=== PATIENT | male | born 1960 | race Caucasian/White ===

== ENCOUNTER 2017-06-05 07:45 | Observation (INO) | payer BC ==
[2017-06-05] MEDS ORDERED: Nitroglycerin 0.4 MG Tab.SL SL ONE (07:55)
[2017-06-05] MEDS ORDERED: Sodium Chloride 0.9% 2.5 ML Syringe FLUSH PRN (07:56)
[2017-06-05] MEDS ORDERED: Aspirin 81 MG Tab.Chew PO ONE (07:56)
[2017-06-05] MEDS ORDERED: Sodium Chloride 0.9% 10 ML Syringe FLUSH PRN (07:56)
[2017-06-05] MEDS ORDERED: Sodium Chloride 0.9% 1,000 ML IV ONE (07:56)
--- NOTE | 2017-06-05 08:01 | EDM.PDOC ---
ED HPI GENERAL MEDICAL PROBLEM - General Chief Complaint: Upper Extremity Injury/Pain Stated Complaint: LEFT SHOULDER PAIN Time Seen by Provider: 06/05/17 07:46 - History of Present Illness INITIAL COMMENTS - FREE TEXT/NARRATIVE: HISTORY AND PHYSICAL: History of present illness: The patient is a 57-year-old male with a history of hypertension hypercholesterolemia and several kidney stones in the fast was also had an ablation for atrial fibrillation in the and presents with left posterior chest/back pain that started 3 days ago it has been constant. He described initially to triage as shoulder pain but really he is pointing to his left back underneath the scapula and says it radiates to his anterior chest and it Does not involve the left arm. There is no associated symptoms of shortness of breath diaphoresis nausea vomiting or abdominal pain. He says he does not have discrete flank pain and this does not feel like a kidney stone and he has had at least 3 of those in the past. He's had no recent trauma and no excessive activity and no neurosensory changes or weakness in his left arm. He has no upper respiratory symptoms such as cough fever chills or runny nose and has not taken anything for the pain. He says it keeps him up at night and it is been constant. The patient says it did start suddenly and has been continuous. He has no leg pain or swelling. The patient does have a significant family history in that his brother had a heart attack at a similar age him, low 50s. Review of systems: As per history of present illness and below otherwise all systems reviewed and negative. Past medical history: As per history of present illness and as reviewed below otherwise noncontributory. Surgical history: As per history of present illness and as reviewed below otherwise noncontributory. Social history: No reported history of drug or alcohol abuse. Family history: As per history of present illness and as reviewed below otherwise noncontributory. Physical exam: Gen.: Well-developed well-nourished man who is nontoxic and vital signs of been noted by me. He moves easily in the ED without distress. HEENT: Atraumatic, normocephalic, negative for conjunctival pallor or scleral icterus, mucous membranes moist, throat clear, neck supple, nontender, trachea midline. Lungs: Clear to auscultation, breath sounds equal bilaterally, chest nontender. There is no evidence of any defects crepitus or deformities of the chest wall anteriorly or posteriorly Heart: S1S2, regular, negative for clicks, rubs, or JVD. Abdomen: Soft, nondistended, nontender. Negative for masses or hepatosplenomegaly. Negative for costovertebral tenderness. Pelvis: Stable nontender. Genitourinary: Deferred. Rectal: Deferred. Extremities: Atraumatic, negative for cords or calf pain. Neurovascular unremarkable. No pedal edema or leg asymmetry Neuro: Awake, alert, oriented. Cranial nerves II through XII unremarkable. Cerebellum unremarkable. Motor and sensory unremarkable throughout. Exam nonfocal. Skin: No diaphoresis normal turgor no evidence of any rashes or lesions Back: There are no midline step-offs tenderness events of the thoracic or lumbar spine and there is no specific musculoskeletal discomfort with palpation of the shoulder girdle but there is some mild discomfort underneath the left scapula with the patient indicates the pain is. There is no discrete CVA tenderness and I cannot reproduce the pain with palpation completely. Diagnostics: EKG CBC CMP troponin d-dimer UA chest x-ray Therapeutics: IV O2 monitor aspirin nitroglycerin sublingual 1 Toradol nitro paste His note the patient did not have any significant change in his back pain with the nitroglycerin sublingual so we will place a small dose of Nitropaste as the sublingual helped his blood pressure. Patient does not want any narcotics or muscle relaxers well give him some Toradol and continue to monitor his workup. 1000: The patient is resting comfortably on my reevaluation and his blood pressure is now 130s over 80s. He has the half an inch of nitro paste in place and I discussed with him all testing results which include a negative troponin, negative labs negative CAT scan for kidney stones negative CAT scan for PE or lung pathology and I discussed with him my concerns about his history and presentation. As he has had the pain continuously for 3 days and has negative EKG and troponin it is unlikely this is a cardiac source but at this point I will recommend observation admission and will discuss the case with our hospitalist due to his significant medical history and his family history. This seems very musculoskeletal but he is comfortable with being observed and doing some serial EKGs and enzymes confirm that. I will give him Norflex and morphine for pain and reevaluate. 1010: Case was discussed with Dr. Parra who is agreeable for admission Impression: Atypical back/chest pain stable with poorly controlled hypertension Definitive disposition and diagnosis as appropriate pending reevaluation and review of above. left shoulder Pain Score (Numeric/FACES): 5 - Related Data Allergies Allergy/AdvReac Type Severity Reaction Status Date / Time No Known Allergies Allergy Verified 06/05/17 07:51 Home Meds: Home Meds Lisinopril/Hydrochlorothiazide [Lisinopril-Hctz 20-12.5 mg Tab] 1 each PO DAILY 06/05/17 [History] Verapamil [Verapamil SR (24 Hr)] 180 mg PO DAILY 06/05/17 [History] Review of Systems - Review of Systems Review Of Systems: ROS reveals no pertinent complaints other than HPI. ED EXAM, GENERAL - Physical Exam Exam: See Below (see dictation) Course - Vital Signs Last Recorded V/S: Last Vital Signs Temp 36.2 C 06/05/17 07:45 Pulse 72 06/05/17 07:45 Resp 18 06/05/17 07:45 BP 160/90 H 06/05/17 08:12 Pulse Ox 96 06/05/17 07:55 - Orders/Labs/Meds Orders: Active Orders 24 hr Category Date Time Status Cardiac Monitoring [RC] . DIRECTED Care 06/05/17 07:55 Active EKG Documentation Completion [RC] STAT Care 06/05/17 07:55 Active Oxygen Therapy, ED [RC] ASDIRECTED Care 06/05/17 07:55 Active Pulse Oximetry [RC] ASDIRECTED Care 06/05/17 07:55 Active CULTURE URINE [RM] Stat Lab 06/05/17 07:56 Uncollected UA W/MICROSCOPIC [URIN] Stat Lab 06/05/17 07:56 Uncollected Orphenadrine [Norflex] Med 06/05/17 10:15 Ordered 60 mg IM Q12H Sodium Chloride 0.9% [Saline Flush] Med 06/05/17 07:56 Active 10 ml FLUSH ASDIRECTED PRN Sodium Chloride 0.9% [Saline Flush] Med 06/05/17 07:56 Active 2.5 ml FLUSH ASDIRECTED PRN Saline Lock Insert [OM.PC] Stat Oth 06/05/17 07:55 Ordered Medication Orders Orphenadrine Citrate (Norflex) 60 mg IM Q12H ANGIE Sodium Chloride (Saline Flush) 10 ml FLUSH ASDIRECTED PRN PRN Reason: Keep Vein Open Sodium Chloride (Saline Flush) 2.5 ml FLUSH ASDIRECTED PRN PRN Reason: Keep Vein Open Labs: Laboratory Tests 06/05/17 06/05/17 06/05/17 Range/Units 08:06 08:06 08:06 WBC 5.62 (4.0-11.0) K/uL RBC 4.68 (4.50-5.90) M/uL Hgb 14.1 (13.0-17.0) g/dL Hct 41.6 (38.0-50.0) % MCV 88.9 (80.0-98.0) fL MCH 30.1 (27.0-32.0) pg MCHC 33.9 (31.0-37.0) g/dL RDW Std Deviation 43.2 (28.0-62.0) fl RDW Coeff of [place]iel[place] 13 (11.0-15.0) % Plt Count 207 (150-400) K/uL MPV 10.30 (7.40-12.00) fL Neut % (Auto) 44.8 L (48.0-80.0) % Lymph % (Auto) 37.9 (16.0-40.0) % Wayne % (Auto) 9.8 (0.0-15.0) % Eos % (Auto) 6.6 (0.0-7.0) % Baso % (Auto) 0.9 (0.0-1.5) % Neut # (Auto) 2.5 (1.4-5.7) K/uL Lymph # (Auto) 2.1 (0.6-2.4) K/uL Wayne # (Auto) 0.6 (0.0-0.8) K/uL Eos # (Auto) 0.4 (0.0-0.7) K/uL Baso # (Auto) 0.1 (0.0-0.1) K/uL Nucleated RBC % 0.0 /100WBC Nucleated RBCs # 0 K/uL D-Dimer, Quantitative 0.38 (0.0-0.52) mg/LFEU Sodium 141 (136-146) mmol/L Potassium 3.6 (3.5-5.1) mmol/L Chloride 108 (98-110) mmol/L Carbon Dioxide 24 (21-31) mmol/L BUN 21 (6.0-23.0) mg/dL Creatinine 0.9 (0.6-1.5) mg/dL Est Cr Clr Drug Dosing 92.74 mL/min Estimated GFR (MDRD) > 60.0 ml/min Glucose 86 (60-110) mg/dL Calcium 8.8 (8.8-10.8) mg/dL Total Bilirubin 0.5 (0.1-1.5) mg/dL AST 16 (5-40) IU/L ALT 14 (8-54) IU/L Alkaline Phosphatase 81 (40-150) Troponin I < 0.10 (0.0-0.29) NG/ML Total Protein 7.2 (6.0-8.0) g/dL Albumin 3.9 (3.5-5.0) g/dL Globulin 3.3 (2.0-3.5) g/dL Albumin/Globulin Ratio 1.2 L (1.3-2.8) Meds: Medications Generic Name Dose Route Start Last Admin Trade Name Freq PRN Reason Stop Dose Admin Orphenadrine Citrate 60 mg 06/05/17 10:15 Norflex IM Q12H ANGIE Sodium Chloride 10 ml 06/05/17 07:56 Saline Flush FLUSH ASDIRECTED PRN Keep Vein Open Sodium Chloride 2.5 ml 06/05/17 07:56 Saline Flush FLUSH ASDIRECTED PRN Keep Vein Open Discontinued Medications Generic Name Dose Route Start Last Admin Trade Name Freq PRN Reason Stop Dose Admin Aspirin 324 mg 06/05/17 07:56 06/05/17 08:12 Aspirin PO 06/05/17 07:57 324 mg ONETIME ONE Administration Sodium Chloride 1,000 mls @ 999 mls/hr 06/05/17 07:56 06/05/17 08:12 Normal Saline IV 06/05/17 08:56 999 mls/hr STAT ONE Administration Iopamidol 50 ml 06/05/17 09:47 06/05/17 09:47 Isovue Multipack-370 (76%) IVPUSH 06/05/17 09:48 50 ml ONETIME ONE Administration Ketorolac Tromethamine 30 mg 06/05/17 08:27 06/05/17 08:45 Toradol IVPUSH 06/05/17 08:28 30 mg ONETIME ONE Administration Morphine Sulfate 2 mg 06/05/17 10:05 Morphine IVPUSH 06/05/17 10:06 ONETIME ONE Nitroglycerin 0.4 mg 06/05/17 07:55 06/05/17 08:12 Nitrostat SL 06/05/17 07:56 0.4 mg ONETIME ONE Administration Nitroglycerin 0.5 gm 06/05/17 08:27 06/05/17 08:46 Nitro-Bid 2% TOP 06/05/17 08:28 0.5 gm ONETIME ONE Administration Departure - Departure Time of Disposition: 10:12 Disposition: Refer to Observation Condition: Good Clinical Impression: Atypical chest pain - Discharge Information Referrals: PCP,None [Primary Care Provider] - Forms: ED Department Discharge - My Orders Last 24 Hours: My Active Orders 06/05/17 07:55 Cardiac Monitoring [RC] . DIRECTED EKG Documentation Completion [RC] STAT Oxygen Therapy, ED [RC] ASDIRECTED Pulse Oximetry [RC] ASDIRECTED Saline Lock Insert [OM.PC] Stat 06/05/17 07:56 CULTURE URINE [RM] Stat UA W/MICROSCOPIC [URIN] Stat Sodium Chloride 0.9% [Saline Flush] 10 ml FLUSH ASDIRECTED PRN Sodium Chloride 0.9% [Saline Flush] 2.5 ml FLUSH ASDIRECTED PRN 06/05/17 10:15 Orphenadrine [Norflex] 60 mg IM Q12H - Assessment/Plan Last 24 Hours: My Active Orders 06/05/17 07:55 Cardiac Monitoring [RC] . DIRECTED EKG Documentation Completion [RC] STAT Oxygen Therapy, ED [RC] ASDIRECTED Pulse Oximetry [RC] ASDIRECTED Saline Lock Insert [OM.PC] Stat 06/05/17 07:56 CULTURE URINE [RM] Stat UA W/MICROSCOPIC [URIN] Stat Sodium Chloride 0.9% [Saline Flush] 10 ml FLUSH ASDIRECTED PRN Sodium Chloride 0.9% [Saline Flush] 2.5 ml FLUSH ASDIRECTED PRN 06/05/17 10:15 Orphenadrine [Norflex] 60 mg IM Q12H
[2017-06-05] MEDS ORDERED: Ketorolac 30 MG/ML SDV IVPUSH ONE (08:27)
[2017-06-05] MEDS ORDERED: Nitroglycerin 2% Oint 1 GM UD Packet TOP ONE (08:27)
--- NOTE | 2017-06-05 08:52 | CR ---
EXAMINATION: Portable chest radiograph. HISTORY: Shortness of breath. FINDINGS: The trachea is midline. The cardiomediastinal silhouette is within normal limits. No pulmonary infilt rates, effusions or pneumothorax. Probable calcified granuloma within the right mid chest. Osseous structures appear unremarkable. IMPRESSION: No acute cardiopulmonary process.
[2017-06-05 08:59] LABS: CHLORIDE,CL 108 mmol/L (98-110); SODIUM,NA 141 mmol/L (136-146)
[2017-06-05] MEDS ORDERED: Iopamidol 755 MG/ML 200 ML Multipack Bottle IVPUSH ONE (09:47)
--- NOTE | 2017-06-05 09:52 | CT ---
CT of the abdomen and pelvis without contrast. HISTORY: Pain TECHNIQUE: Axial CT images were obtained of the abdomen and pelvis without contrast. Coronal and sagi ttal reconstructions obtained. FINDINGS: The lung bases are clear, no pleural effusion. The liver, spleen, adrenal glands, and pancreas appear unremarkable for noncontrast examination. The gallbladder appears normal. There is no bulky retroperitoneal lymphadenopathy. No abdominal ascites. There are no calcifications noted within the kidneys or along the courses of the ureters bilaterally. The large and small bowel are normal in caliber without evidence of obstruction. The appendix appears normal. Moderate diverticulosis without evidence of diverticulitis. There is no bulky pelvic lymphad enopathy. No free fluid. No free air. The urinary bladder appears normal. The visualized osseous structures appear normal. IMPRESSION: 1. No acute findings within the abdomen or pelvis. 2. Diverticulosis without evidence of diverticulitis.
--- NOTE | 2017-06-05 09:57 | CT ---
EXAMINATION: CTA chest HISTORY: Back pain COMPARISON: None TECHNIQUE: Axial CT images obtained through the chest following the administration of 50 mL of Isovue -370 right antecubital fossa. Coronal and sagittal reconstructions obtained. FINDINGS: The lungs are clear without focal consolidation. No pleural effusion or pneumothorax. Calci fied granuloma noted in the right middle lobe. Mild dependent atelectasis. The heart is normal in siz e without a pericardial effusion. Mild coronary artery calcifications. The thoracic aorta is normal i n caliber. No bulky mediastinal, hilar, or axillary lymphadenopathy. The main pulmonary arteries are patent, no pulmonary embolism identified. Central airways are clear. Visualized images of the upper abdomen appear unremarkable. No suspicious osseous abnormalities. IMPRESSION: 1. No acute cardiopulmonary findings. 2. No pulmonary embolism identified.
[2017-06-05] MEDS ORDERED: Morphine 2 MG/ML Syringe IVPUSH ONE (10:05)
--- NOTE | 2017-06-05 11:29 | PCM.HP ---
H&P History of Present Illness - General Date of Service: 06/05/17 Admit Problem/Dx: Chest pain Source of Information: Patient History Limitations: Reports: No Limitations - History of Present Illness Initial Comments - Free Text/Narative: This 57 year old male with pmh of afib with ablation in the early , HTN, dyslipidemia and obesity presented to the ED today with concerns of L scapular/ shoulder pain, which radiates to upper L anterior chest. He reports 3 days ago this pain started, which is sharp shooting in nature and constant. The pain increases with movement of L arm and shoulder and improves some with rest. he denies SOB, diaphoresis or palpitations with this pain. It doesn't necessarily worsen with activity, except with moving L arm and shoulder. The pain is located to upper mid back, not over spine, just beneath the scapula. he denies recent trauma or injury that he can recall. He does work in the [employer] and performs labor intensive work at times. He reports 2 or so years ago he was exposed to H2S gas and flown to [place] and woke up intubated. No complications since. He does have family history of CAD, brother had MN near ago 50. In the ED labowrk WNL. Troponin negative. EKG SR with slight LA prolongation, no acute signs of ischemia. CXR negative along with Abdominal/Pelvis CT and CT angio chest. he was treated with ASA, SL nitro and nitro paste. BP elevated 160 /90s on ED arrival. Patient reports he has not taken any home medications for BP this morning, he was just getting off work and felt the pain was severe and needed follow up. He was given Toradol, Morphine and Orophenadrine for musculoskeletal pain of shoulder/upper back. He will be admitted with atypical chest pain R/O ACS. left shoulder Pain Score (Numeric/FACES): 5 - Related Data Allergies/Adverse Reactions: Allergies Allergy/AdvReac Type Severity Reaction Status Date / Time No Known Allergies Allergy Verified 06/05/17 07:51 Home Medications: Home Meds Lisinopril/Hydrochlorothiazide [Lisinopril-Hctz 20-12.5 mg Tab] 1 each PO DAILY 06/05/17 [History] Verapamil [Verapamil SR (24 Hr)] 180 mg PO DAILY 06/05/17 [History] Past Medical History Cardiovascular History: Reports: Afib (ablation in 1990s.), High Cholesterol, Hypertension Respiratory History: Reports: None. Denies: Asthma, COPD Gastrointestinal History: Reports: None. Denies: GERD, GI Bleed Genitourinary History: Reports: Renal Calculus Musculoskeletal History: Reports: None. Denies: Arthritis Neurological History: Denies: CVA, TIA Psychiatric History: Denies: Anxiety, Depression Oncologic (Cancer) History: Reports: Lymphoma (treated with chemotherapy, 12 years ago), Malignant Melanoma - Infectious Disease History Infectious Disease History: Reports: Mumps - Past Surgical History HEENT Surgical History: Reports: Other (See Below) Other HEENT Surgeries/Procedures: tumor removed from back of neck. Cardiovascular Surgical History: Reports: Cardiac Ablation Male Surgical History: Reports: Renal Calculus Musculoskeletal Surgical History: Reports: Carpal Tunnel Social & Family History - Family History Cardiac: Reports: CAD, [place] - Tobacco Use Smoking Status *Q: Never Smoker - Alcohol Use Alcohol Use History: No - Recreational Drug Use Recreational Drug Use: No - Living Situation & Occupation Living situation: Reports: Occupation: Employed H&P Review of Systems - Review of Systems: Review Of Systems: See Below General: Reports: No Symptoms. Denies: Fever, Chills, Malaise, Weakness HEENT: Reports: No Symptoms. Denies: Headaches, Sinus Congestion, Sore Throat Pulmonary: Reports: No Symptoms. Denies: Shortness of Breath, Cough, Sputum Cardiovascular: Reports: No Symptoms. Denies: Chest Pain, Dyspnea on Exertion, Edema, Lightheadedness Gastrointestinal: Reports: No Symptoms, Flatus. Denies: Abdominal Pain, Black Stool, Bloody Stool Genitourinary: Reports: No Symptoms. Denies: Frequency, Burning, Flank Pain Musculoskeletal: Reports: Back Pain (upper back, L side just below scapula.) Skin: Reports: No Symptoms Psychiatric: Reports: No Symptoms Neurological: Reports: No Symptoms Exam - Exam Exam: See Below - Vital Signs Vital Signs: Last Vital Signs Temp 97.2 F 06/05/17 07:45 Pulse 59 L 06/05/17 11:00 Resp 16 06/05/17 11:00 BP 135/80 06/05/17 11:00 Pulse Ox 93 L 06/05/17 11:00 Weight: 104.326 kg - Exam General: Alert, Oriented, Cooperative HEENT: Conjunctiva Clear, Mucosa Moist & Bergman, Posterior Pharynx Clear, Pupils Equal Neck: Supple, Trachea Midline, 2 Lungs: Clear to Auscultation, Normal Respiratory Effort Cardiovascular: Regular Rate, Regular Rhythm GI/Abdominal Exam: Normal Bowel Sounds, Soft, Non-Tender, No Organomegaly, No Distention, No Abnormal Bruit, No Mass, Pelvis Stable Back Exam: Normal Inspection, Full Range of Motion, Other (notable tenderness to lower trapezius, just below L scapula, with palpation of this if ellicits pain he is feeling, this also radiates to upper neck and L upper chest, which is tender to palpation as well. No bruising or ecchymosis noted to back and no palpation mass. Shoulder is free and moveable, but with movement it also ellicits same pain to scapular region.) Neuro Extensive - Mental Status: Alert, Oriented x3, Normal Mood/Affect, Normal Cognition Psychiatric: Alert, Normal Affect, Normal Mood - Patient Data Result Diagrams: 06/05/17 08:06 06/05/17 08:06 *Q Meaningful Use (ADM) - VTE *Q VTE Criteria *Q: - Stroke *Q Stroke Criteria *Q: - AMI *Q AMI Criteria *Q: - Problem List (1) Back pain SNOMED Code(s): 414824127 ICD Code: M54.9 - DORSALGIA, UNSPECIFIED Status: Acute Current Visit: Yes Qualifiers: Back pain location: back pain in other location Chronicity: acute Qualified Code(s): M54.9 - Dorsalgia, unspecified (2) Atypical chest pain SNOMED Code(s): 781023417 ICD Code: R07.89 - OTHER CHEST PAIN Status: Acute Current Visit: Yes (3) HTN (hypertension) SNOMED Code(s): 53304248 ICD Code: I10 - ESSENTIAL (PRIMARY) HYPERTENSION Status: Chronic Current Visit: Yes Qualifiers: Hypertension type: essential hypertension Qualified Code(s): I10 - Essential (primary) hypertension (4) Dyslipidemia SNOMED Code(s): 973525365 ICD Code: E78.5 - HYPERLIPIDEMIA, UNSPECIFIED Status: Chronic Current Visit: Yes (5) History of atrial fibrillation SNOMED Code(s): 585411686 ICD Code: Z86.79 - PERSONAL HISTORY OF OTHER DISEASES OF THE CIRCULATORY SYSTEM Status: Chronic Current Visit: Yes Problem List Initiated/Reviewed/Updated: Yes Orders Last 24hrs: Medication Orders Orphenadrine Citrate (Norflex) 60 mg IM Q12H ANGIE Last Admin: 06/05/17 10:29 Dose: 60 mg Sodium Chloride (Saline Flush) 10 ml FLUSH ASDIRECTED PRN PRN Reason: Keep Vein Open Sodium Chloride (Saline Flush) 2.5 ml FLUSH ASDIRECTED PRN PRN Reason: Keep Vein Open Assessment/Plan Comment:: This 57 year old male admitted with atypical chest pain and upper L back pain 1. Atypical chest pain: With personal and family history will rule out ACS. Trend troponins and monitor on telemetry. A1c 5.2 and Cholesterol well controlled on statin. 2. Upper L back pain: Which is likely causing radating L upper chest pain. Ice/ heat therapy. Tylenol and Norflex PRN. No NSAIDs now due to ACS rule out and cardiac disease. 3. HTN: Kiko remove Nitro paste and give am medications. BP elevated on arrival, but patient had not taken morning medications. WIll monitor. 4. Dyslipidemia: controlled. Continue Crestor VTE prophylaxis: SCDs Dispo; Possible DC in am.
[2017-06-05] MEDS ORDERED: Acetaminophen 325 MG Tab PO PRN (11:52)
[2017-06-05] MEDS ORDERED: Ondansetron 4 MG/2 ML SDV IVPUSH PRN (11:52)
[2017-06-05] MEDS ORDERED: Non-Formulary Medication 1 Each (Lisinopril/Hydrochlorothiazide [Lisinopril-Hctz 20-12.5 M PO SCH (12:00)
[2017-06-05] MEDS: Lisinopril 10 MG Tab PO SCH (13:32)
[2017-06-05] MEDS: Hydrochlorothiazide 12.5 MG Cap PO SCH (13:32)
[2017-06-05] MEDS: Verapamil 180 MG Tab.ER PO SCH (13:32)
[2017-06-05] MEDS ORDERED: traMADol 50 MG Tab PO PRN (16:31)
[2017-06-05] MEDS ORDERED: Morphine 2 MG/ML Syringe IVPUSH PRN (16:32)
[2017-06-05] MEDS ORDERED: Rosuvastatin 10 MG Tab PO SCH (21:00)
--- NOTE | 2017-06-06 08:33 | PCM.DCSUM1 ---
Discharge Summary - Hospital Course Brief History: This 57 year old male with pmh of afib with ablation in the early , HTN, dyslipidemia and obesity presented to the ED today with concerns of L scapular/shoulder pain, which radiates to upper L anterior chest. He reports 3 days ago this pain started, which is sharp shooting in nature and constant. The pain increases with movement of L arm and shoulder and improves some with rest. he denies SOB, diaphoresis or palpitations with this pain. It doesn't necessarily worsen with activity, except with moving L arm and shoulder. The pain is located to upper mid back, not over spine, just beneath the scapula. he denies recent trauma or injury that he can recall. 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 He reports 2 or so years ago he was exposed to H2S gas and flown to [place] and woke up intubated. No complications since. He does have family history of CAD, brother had AK near ago 50. In the ED labowrk WNL. Troponin negative. EKG SR with slight NE prolongation, no acute signs of ischemia. CXR negative along with Abdominal/ Pelvis CT and CT angio chest. he was treated with ASA, SL nitro and nitro paste. BP elevated 160/90s on ED arrival. Patient reports he has not taken any home medications for BP this morning, he was just getting off work and felt the pain was severe and needed follow up. He was given Toradol, Morphine and Orophenadrine for musculoskeletal pain of shoulder/upper back. He will be admitted with atypical chest pain R/O ACS. - Discharge Data Discharge Date: 06/06/17 Discharge Disposition: Home, Self-Care 01 Condition: Good - Discharge Diagnosis/Problem(s) (1) Back pain SNOMED Code(s): 226911994 ICD Code: M54.9 - DORSALGIA, UNSPECIFIED Status: Acute Current Visit: Yes Qualifiers: Back pain location: back pain in other location Chronicity: acute Qualified Code(s): M54.9 - Dorsalgia, unspecified (2) Atypical chest pain SNOMED Code(s): 137771356 ICD Code: R07.89 - OTHER CHEST PAIN Status: Acute Current Visit: Yes (3) HTN (hypertension) SNOMED Code(s): 87987326 ICD Code: I10 - ESSENTIAL (PRIMARY) HYPERTENSION Status: Chronic Current Visit: Yes Qualifiers: Hypertension type: essential hypertension Qualified Code(s): I10 - Essential (primary) hypertension (4) Dyslipidemia SNOMED Code(s): 839025274 ICD Code: E78.5 - HYPERLIPIDEMIA, UNSPECIFIED Status: Chronic Current Visit: Yes (5) History of atrial fibrillation SNOMED Code(s): 042519195 ICD Code: Z86.79 - PERSONAL HISTORY OF OTHER DISEASES OF THE CIRCULATORY SYSTEM Status: Chronic Current Visit: Yes - Patient Instructions Diet: Heart Healthy Diet Activity: No Strenuous Activities, Rest and Relax Today Driving: Do Not Drive Showering/Bathing: August Shower Notify Provider of: Fever, Increased Pain, Swelling and Redness, Drainage, Nausea and/or Vomiting - Discharge Plan Home Medications: Home Meds Lisinopril/Hydrochlorothiazide [Lisinopril-Hctz 20-12.5 mg Tab] 1 each PO DAILY 06/05/17 [History] Rosuvastatin Calcium 20 mg PO BEDTIME 06/05/17 [History] Verapamil [Verelan] 180 mg PO DAILY 06/05/17 [History] Acetaminophen [Tylenol] 650 mg PO Q4H PRN tablet 06/06/17 [Rx] Referrals: PCP,None [Primary Care Provider] - (follow up with PCP in 1 week) - Discharge Summary/Plan Comment DC Time >30 min.: No Discharge Summary/Plan Comment: Discharge Diagnoses: L upper back, trapezius muscle strain HTN Dyslipidemia Hx afib, s/p ablation in . [place] was admitted due to L upper back, scapular pain, which radiated to L upper chest and neck. He had exquisite tenderness right below scapula on the lower trapezius muscle. He was treated with Orphenidrine, Toradol and Morphine in the ED. He was given Nitro SL and nitro paste in ED, which did not help pain at all. Once arriving to floor the pain had improved but received Tramadol x1 and slept the night without any concerns. Due to cardiac history ED recommended admission for atypical chest pain. Troponins were all negative and telemetry showed no signs of acute ischemia. He had no associated symptoms such as dyspnea or diaphoresis. This morning he is feeling much better, the tenderness to upper back is nearly gone and he is eager to be discharged home. He will be sent home with encouragement to rest today, no work until tomorrow night. He was encouraged to use heat or ice as needed for pain and Tylenol 650 q4hr prn pain. He is to return to PCP in 1 week for follow up, we will fax information. I do not feel urgent stress test is needed due to nature and reproducible pain from palpation of trapezius. ACS ruled out, but pain secondary to trapezius muscle strain. He is to return to ED or clinic if concerns should arise. Continue all home medications as previously prescribed. - General Info Date of Service: 06/06/17 Admission Dx/Problem (Free Text: L upper back pain, Atypical Chest pain Subjective Update: Doing well this morning, slept really well. Pain to L shoulder upper back is much better. He is able to move shoulder easily without causing pain to lower trapezius muscle. No chest pain, SOB or palpitations. No neck pain. Ready to be discharged home this morning. Functional Status: Reports: Pain Controlled, Tolerating Diet, Ambulating, Urinating - Review of Systems General: Reports: No Symptoms. Denies: Fever HEENT: Reports: No Symptoms. Denies: Headaches, Sore Throat, Rhinitis Pulmonary: Reports: No Symptoms. Denies: Shortness of Breath Cardiovascular: Reports: No Symptoms. Denies: Chest Pain, Palpitations, Edema, Lightheadedness Gastrointestinal: Reports: No Symptoms. Denies: Abdominal Pain, Nausea, Vomiting Genitourinary: Reports: No Symptoms. Denies: Dysuria, Frequency, Burning Musculoskeletal: Reports: Back Pain (upper back, patient explains as shoulder, but actual shoulder joint does not have pain, more more blade. Pain is nearly gone today.) Neurological: Reports: No Symptoms Psychiatric: Reports: No Symptoms - Patient Data Vitals - Most Recent: Last Vital Signs Temp 96.7 F 06/06/17 07:42 Pulse 55 L 06/06/17 07:42 Resp 18 06/06/17 07:42 BP 132/81 06/06/17 07:42 Pulse Ox 96 06/06/17 07:42 Weight - Most Recent: 104.326 kg I&O - Last 24 hours: Intake & Output 06/05/17 06/06/17 06/06/17 22:59 06:59 14:59 Intake Total 200 300 Output Total 250 675 Balance -50 -375 Lab Results - Last 24 hrs: Laboratory Results - last 24 hr 06/05/17 06/05/17 06/05/17 Range/Units 12:15 14:17 19:58 Troponin I < 0.10 < 0.10 (0.0-0.29) NG/ML Urine Color YELLOW Urine Appearance CLEAR Urine pH 6.0 (5.0-8.0) Ur Specific [place] 1.020 (1.001-1.035) Urine Protein NEGATIVE (NEGATIVE) mg/dL Urine Glucose (UA) NEGATIVE (NEGATIVE) mg/dL Urine Ketones NEGATIVE (NEGATIVE) mg/dL Urine Occult Blood NEGATIVE (NEGATIVE) Urine Nitrite NEGATIVE (NEGATIVE) Urine Bilirubin NEGATIVE (NEGATIVE) Urine Urobilinogen 0.2 (<2.0) EU/dL Ur Leukocyte Esterase NEGATIVE (NEGATIVE) Urine RBC 0-1 (0-2/HPF) Urine WBC 0-1 (0-5/HPF) Ur Epithelial Cells RARE (NONE-FEW) Urine Bacteria RARE (NEGATIVE) Med Orders - Current: Current Medications Acetaminophen (Tylenol) 650 mg PO Q4H PRN PRN Reason: Pain (mild 1-3) Last Admin: 06/05/17 16:06 Dose: 650 mg Hydrochlorothiazide (Hydrochlorothiazide) 12.5 mg PO DAILY [facility] Last Admin: 06/05/17 13:32 Dose: 12.5 mg Lisinopril (Prinivil) 20 mg PO DAILY [facility] Last Admin: 06/05/17 13:32 Dose: 20 mg Morphine Sulfate (Morphine) 2 mg IVPUSH Q4H PRN PRN Reason: Pain Ondansetron HCl (Zofran) 4 mg IVPUSH Q4H PRN PRN Reason: Nausea Orphenadrine Citrate (Norflex) 60 mg IM Q12H PRN PRN Reason: Pain Rosuvastatin Calcium (Crestor) 20 mg PO BEDTIME [facility] Last Admin: 06/05/17 20:10 Dose: 20 mg Sodium Chloride (Saline Flush) 10 ml FLUSH ASDIRECTED PRN PRN Reason: Keep Vein Open Sodium Chloride (Saline Flush) 2.5 ml FLUSH ASDIRECTED PRN PRN Reason: Keep Vein Open Tramadol HCl (Ultram) 50 mg PO Q4H PRN PRN Reason: Pain Last Admin: 06/05/17 20:10 Dose: 50 mg Verapamil HCl (Calan Sr) 180 mg PO DAILY [facility] Last Admin: 06/05/17 13:32 Dose: 180 mg Discontinued Medications Aspirin (Aspirin) 324 mg PO ONETIME ONE Stop: 06/05/17 07:57 Last Admin: 06/05/17 08:12 Dose: 324 mg Sodium Chloride (Normal Saline) 1,000 mls @ 999 mls/hr IV STAT ONE Stop: 06/05/17 08:56 Last Admin: 06/05/17 08:12 Dose: 999 mls/hr Iopamidol (Isovue Multipack-370 (76%)) 50 ml IVPUSH ONETIME ONE Stop: 06/05/17 09:48 Last Admin: 06/05/17 09:47 Dose: 50 ml Ketorolac Tromethamine (Toradol) 30 mg IVPUSH ONETIME ONE Stop: 06/05/17 08:28 Last Admin: 06/05/17 08:45 Dose: 30 mg Morphine Sulfate (Morphine) 2 mg IVPUSH ONETIME ONE Stop: 06/05/17 10:06 Last Admin: 06/05/17 10:29 Dose: 2 mg Nitroglycerin (Nitrostat) 0.4 mg SL ONETIME ONE Stop: 06/05/17 07:56 Last Admin: 06/05/17 08:12 Dose: 0.4 mg Nitroglycerin (Nitro-Bid 2%) 0.5 gm TOP ONETIME ONE Stop: 06/05/17 08:28 Last Admin: 06/05/17 08:46 Dose: 0.5 gm Orphenadrine Citrate (Norflex) 60 mg IM Q12H [facility] Last Admin: 06/05/17 10:29 Dose: 60 mg - Exam Quality Assessment: Reports: DVT Prophylaxis. Denies: Supplemental Oxygen General: Reports: Alert, Oriented, Cooperative, No Acute Distress HEENT: Reports: Pupils Equal, Pupils Reactive, EOMI, Mucous Membr. Moist/[place] Neck: Reports: Supple Lungs: Reports: Clear to Auscultation, Normal Respiratory Effort Cardiovascular: Reports: Regular Rate, Regular Rhythm GI/Abdominal Exam: Normal Bowel Sounds, Soft, Non-Tender, No Organomegaly, No Distention, No Abnormal Bruit, No Mass, Pelvis Stable Back Exam: Reports: Normal Inspection, Full Range of Motion, Other (no futher tenderness noted to lower trapezius muscle just below L scapula. ) Neurological: Reports: No New Focal Deficit Psy/Mental Status: Reports: Alert, Normal Affect, Normal Mood *Q Meaningful Use (DIS) - VTE *Q VTE Criteria *Q: - Stroke *Q Stroke Criteria *Q: - AMI *Q AMI Criteria *Q:
[2017-06-06] MEDS: Verapamil 180 MG Tab.ER PO SCH (08:54)
[2017-06-06] MEDS: Lisinopril 10 MG Tab PO SCH (08:54)
[2017-06-06] MEDS: Hydrochlorothiazide 12.5 MG Cap PO SCH (08:55)
== END 2017-06-06 10:30 | disposition home or self-care (01) ==
LOC: MW.ED 07:45 → MW.MS 10:13
PROVIDERS: ADMIT Internal Medicine; ATTEND Internal Medicine
DX: M54.9 Dorsalgia, unspecified (principal); R07.89 Other chest pain; I10 Essential (primary) hypertension; E78.5 Hyperlipidemia, unspecified; I48.2 Chronic atrial fibrillation; E78.00 Pure hypercholesterolemia, unspecified; E66.9 Obesity, unspecified; Z68.34 Body mass index [BMI] 34.0-34.9, adult; Z92.21 Personal history of antineoplastic chemotherapy; Z85.72 Personal history of non-Hodgkin lymphomas; Z85.820 Personal history of malignant melanoma of skin; Z82.49 Family history of ischemic heart disease and other diseases of the circulatory system; Z79.899 Other long term (current) drug therapy; Z98.890 Other specified postprocedural states
CPT/HCPCS: 36415; 71045; 71275; 74176; 80053; 80061; 81001; 83036; 84484; 85025; 85379; 87086; 93005; 96361; 96372; 96374; 96375; 99285; A9270; G0378; J1885; J2270; J2360; J7040; Q9967; 99284